=== PATIENT | female | born 1955 | race Caucasian/White ===

== ENCOUNTER 2017-03-19 08:15 | Emergency (ER) | payer BC ==
[2017-03-19 08:22] VITALS: BP 132/82
--- NOTE | 2017-03-19 08:39 | ER Document Report ---
ED Eye Complaint - General Mode of Arrival: Ambulatory Information source: Patient TRAVEL OUTSIDE OF THE [place] IN LAST 30 DAYS: No - HPI Onset: This morning Eye location: Left Associated symptoms: Other - see above - General Chief Complaint: Eye Problem Stated Complaint: EYE PROBLEM Notes: Patient is a 61 year old female who presents to the ED with complaints of left eye pain, swelling and bloody discharge with onset this morning. Patient states the eye does not itch. Patient is being treated for H Pylori and is on a Prevpac. Patient also has a history of rheumatoid arthritis. (VINI MADRID) - Related Data Allergies/Adverse Reactions: No Known Allergies Allergy (Unverified 03/19/17 08:21) Past Medical History - General Information source: Patient - Social History Smoking Status: Never Smoker Chew tobacco use (# tins/day): No Frequency of alcohol use: None Drug Abuse: None Family History: Reviewed & Not Pertinent Renal/ Medical History: Denies: Hx Peritoneal Dialysis Musculoskeltal Medical History: Reports Hx Arthritis Past Surgical History: Reports: Hx Appendectomy, Hx Section, Hx Tonsillectomy Review of Systems - Review of Systems Constitutional: No symptoms reported EENT: See HPI, Eye pain, Eye discharge Cardiovascular: No symptoms reported Respiratory: No symptoms reported Gastrointestinal: No symptoms reported Genitourinary: No symptoms reported Female Genitourinary: No symptoms reported Musculoskeletal: No symptoms reported Skin: No symptoms reported Hematologic/Lymphatic: No symptoms reported Neurological/Psychological: No symptoms reported Physical Exam - General General appearance: Appears well, Alert In distress: None - HEENT Head: Normocephalic, Atraumatic Eyes: Other - right eye is not involved, left eye has no globe tenderness or firmness to palpation, pupil conjuctiva is extremely injected, beefy red, there is a dialated vessle that looks as thought it may have popped with a small clot on the end of it, sceral conjunctiva is injected, no preauricular node Extraocular movements intact: Yes Pupils: PERRL Ears: Other - no preauricular node - Respiratory Respiratory status: No respiratory distress - Cardiovascular Rhythm: Regular - Abdominal Distension: No distension - Back Back: Normal - Extremities General upper extremity: Normal inspection, Normal ROM General lower extremity: Normal inspection, Normal ROM - Neurological Neuro grossly intact: Yes - Psychological Associated symptoms: Normal affect, Normal mood - Skin Skin Temperature: Warm Skin Moisture: Dry Skin Color: Normal - Vital signs Vitals: Temp Pulse Resp BP Pulse Ox 97.7 F 80 16 132/82 H 96 03/19/17 08:20 03/19/17 08:20 03/19/17 08:20 03/19/17 08:20 03/19/17 08:20 - Vital Signs Vital signs: Temp Pulse Resp BP Pulse Ox 97.7 F 80 16 132/82 H 96 03/19/17 08:20 03/19/17 08:20 03/19/17 08:20 03/19/17 08:20 03/19/17 08:20 Discharge - Discharge Clinical Impression: Conjunctivitis Qualifiers: Conjunctivitis type: acute Acute conjunctivitis type: unspecified Laterality: left Qualified Code(s): H10.32 - Unspecified acute conjunctivitis, left eye Condition: Stable Disposition: HOME, SELF-CARE Additional Instructions: Conjunctivitis: You have an infection in your eye, commonly known as "pink eye." Conjunctivitis causes redness, mild discomfort, itching, and mattering on the eyelids. It is very contagious, so you must be careful to wash your hands after touching your face so you don't pass the infection on to others. Conjunctivitis is caused by both viruses and bacteria. It usually responds quickly to treatment with antibiotic drops. These should be placed in the eye as prescribed (usually every three to four hours while you're awake). If you wear contact lenses, don't put them in your eyes until the infection is cleared and you are no longer using the drops (unless your doctor advises you otherwise). Should you develop increasing eye pain, severe swelling, decreased vision, or fail to improve as expected, please return for re-examination. PLACE 1 DROP OF THE POLYTRIM INTO THE LEFT EYE EVERY 2 HOURS TODAY, THEN EVERY [address] 1 DROP OF THE KETOROLAC INTO THE LEFT EYE EVERY 4 HOURS TODAY. USE WARM SOAKS TO THE LEFT EYE TODAY. FOLLOW UP WITH A LOCAL PROTECTIVE SERVICES CASE WORKER OR AUTOMATION TECH IF NOT IMPROVING. RETURN TO THE EMERGENCY ROOM IF ANY NEW OR WORSENING SYMPTOMS. Flores Attestation: 03/19/17 09:10 I personally performed the services described in the documentation, reviewed and edited the documentation which was dictated to the scribe in my presence, and it accurately records my words and actions. (YOLIE CONWAY) Scribe Documentation - Scribe Written by Flores:: flores Longoria, 03/19/2017, 08 acting as scribe for :: Sole
[2017-03-19] MEDS ORDERED: POLYMYXIN B SULFATE/TMP OPH SOLN (10 ML/ER DISP) OS ONE (08:41)
[2017-03-19] MEDS ORDERED: KETOROLAC TROMETHAMINE 0.45% 4 DROP/0.4 ML DROPERETTE OS ONE (08:41)
== END 2017-03-19 09:15 | disposition home or self-care (01) ==
LOC: ER 08:15
DX: H10.32 Unspecified acute conjunctivitis, left eye (principal)
CPT/HCPCS: 99283; J3490